=== PATIENT | male | born 1950 | race Caucasian/White ===

== ENCOUNTER → 2019-01-07 | Outpatient (CLI) | payer OTHER ==
[~2019-01-07] MED LIST: ANUSOL-HC25 MG RC; HYDROCODONE BIT1 T11 PO; LOMOTIL 0.025 M1 TA1 PO; LOPRESSOR100 M1 PO; NORVASC5 MG PO; VIAGRA100 MG PO; ZESTRIL30 M3 PO; Zofran4 MG PO
== END | disposition home or self-care (01) ==
LOC: US 09:48
DX: K80.80 Other cholelithiasis without obstruction (principal); I71.4 Abdominal aortic aneurysm, without rupture; I11.9 Hypertensive heart disease without heart failure; K74.69 Other cirrhosis of liver; B18.2 Chronic viral hepatitis C

== ENCOUNTER → 2020-05-08 | Outpatient (CLI) | payer MEDICARE | END | disposition home or self-care (01) | LOC: COVID19 10:16 | PROVIDERS: ATTEND Ophthalmology | DX: Z01.812 Encounter for preprocedural laboratory examination (principal); Z20.828 Contact with and (suspected) exposure to other viral communicable diseases ==

== ENCOUNTER → 2020-07-10 | Outpatient (CLI) | payer MEDICARE | END | disposition home or self-care (01) | LOC: COVID19 08:44 | PROVIDERS: ATTEND Ophthalmology | DX: Z01.812 Encounter for preprocedural laboratory examination (principal); Z20.828 Contact with and (suspected) exposure to other viral communicable diseases ==

== ENCOUNTER → 2020-07-15 | Day surgery (SDC) | payer MEDICARE ==
[~2020-07-15] VITALS: Ht 182.8 cm; Wt 95.3 kg
[2020-07-15 09:00] VITALS: BP 123/90
[2020-07-15 10:50] VITALS: BP 142/85
[2020-07-15 11:05] VITALS: BP 144/91
[2020-07-15 11:20] VITALS: BP 144/94
== END ==
LOC: SDC 05-08 11:00
PROVIDERS: ATTEND Ophthalmology
DX: H25.812 Combined forms of age-related cataract, left eye (principal); I10 Essential (primary) hypertension; F17.210 Nicotine dependence, cigarettes, uncomplicated; Z95.1 Presence of aortocoronary bypass graft; Z98.890 Other specified postprocedural states; Z79.899 Other long term (current) drug therapy

== ENCOUNTER → 2020-08-07 | Outpatient (CLI) | payer MEDICARE | END | disposition home or self-care (01) | LOC: COVID19 09:03 | PROVIDERS: ATTEND Ophthalmology | DX: Z01.818 Encounter for other preprocedural examination (principal); Z20.822 Contact with and (suspected) exposure to COVID-19 ==

== ENCOUNTER → 2020-08-12 | Day surgery (SDC) | payer MEDICARE ==
[~2020-08-12] VITALS: Ht 182.8 cm; Wt 90.7 kg
[2020-08-12 12:22] VITALS: BP 112/89
[2020-08-12 12:35] VITALS: BP 110/84
[2020-08-12 12:53] VITALS: BP 105/68
== END ==
LOC: SDC 08-07 13:15
PROVIDERS: ATTEND Ophthalmology
DX: H25.811 Combined forms of age-related cataract, right eye (principal); I25.10 Atherosclerotic heart disease of native coronary artery without angina pectoris; I10 Essential (primary) hypertension; Z95.1 Presence of aortocoronary bypass graft; Z79.899 Other long term (current) drug therapy

== ENCOUNTER 2021-04-15 20:18 | Emergency (ER) | payer MEDICARE ==
[~2021-04-15] VITALS: Ht 182.8 cm; Wt 102.1 kg
== END 2021-04-15 22:53 ==
LOC: ED 20:18
DX: I46.9 Cardiac arrest, cause unspecified (principal); Z79.899 Other long term (current) drug therapy